=== PATIENT | female | born 1990 | race Caucasian/White ===

== ENCOUNTER 2021-05-20 17:48 | Inpatient (IN) ==
[2021-05-20] MEDS ORDERED: Buffered Lidocaine 1% SYRIN 1 ml INTRADERM ONE (18:31)
[2021-05-20] MEDS ORDERED: Dinoprostone 10 MG VAG.SUPP VAGINAL ONE (18:31)
[2021-05-20] MEDS ORDERED: Lactated Ringers 1000 ml BAG 1,000 ML IV ONE (18:31)
[2021-05-20] MEDS ORDERED: Lactated Ringers 1000 ml BAG 1,000 ML IV SCH (19:00)
[2021-05-20 20:48] LABS: Urine Benzodiazepine Screen None Detected (None Detect); Urine Cannabinoids Screen None Detected (None Detect); Urine Opiates Screen None Detected (None Detect)
[2021-05-21] MEDS ORDERED: Nalbuphine 10 MG/ML 1 ML VIAL IM ONE (03:48)
[2021-05-21] MEDS ORDERED: Calcium Carb (TUMS) 500 mg CHEW TAB PO PRN (03:49)
[2021-05-21] MEDS ORDERED: Promethazine INJ(RESTRICTED) 25 MG/ML 1 ml VIAL IM ONE (03:49)
[2021-05-21] MEDS ORDERED: Nalbuphine 10 MG/ML 1 ML VIAL ONE (04:03)
[2021-05-21] MEDS ORDERED: Promethazine INJ(RESTRICTED) 25 MG/ML 1 ml VIAL ONE (04:03)
[2021-05-21] MEDS ORDERED: Oxytocin in LR 20 UNITS/1,000 ML BAG IVPB SCH (11:00)
[2021-05-21 11:21] LABS: ABS Basophils 0.1 10^3/ul (0-0.2); ABS Eosinophils 0.1 10^3/ul (0-0.6); ABS Lymphocytes 1.5 10^3/ul (1.0-4.8); ABS Monocytes 0.5 10^3/ul (0-0.8); ABS Neutrophils 8.7 10^3/ul (1.5-7.7); Eosinophil % 0.6 %; Hematocrit 35 % (35-47); Hemoglobin 11.7 g/dL (12.0-16.0); Lymphocyte % 13.4 %; Mean Corpuscular HGB Conc 33 g/dL (31-36); Mean Corpuscular Hemoglobin 28 pg (27-31); Mean Corpuscular Volume 84 fL (80-97); Mean Platelet Volume 9.2 fL (7.4-10.4); Platelet Count 188 10^3/uL (150-450); Red Blood Count 4.18 10^6 /uL (3.70-4.87); Red Cell Distribution Width 17 % (10-15); White Blood Count 10.9 10^3/uL (3.5-10.8)
[2021-05-21 12:58] LABS: Urine Appearance Clear; Urine Bilirubin Negative (Negative); Urine Blood 2+ (Negative); Urine Color Yellow; Urine Glucose Negative (Negative); Urine Ketones Trace (Negative); Urine Nitrite Negative (Negative); Urine Protein Negative (Negative); Urine Specific Gravity 1.011 (1.002-1.030); Urine Urobilinogen Negative (Negative)
[2021-05-21 13:04] LABS: Urine Amorphous Crystals Present (Absent); Urine Bacteria 1+ (Absent); Urine Red Blood Cell 1+(3-5/hpf) (Absent); Urine Squamous Epithelial Cell Present (Absent); Urine White Blood Cell Trace(0-5/hpf) (Absent)
[2021-05-21 13:08] LABS: Albumin/Globulin Ratio 0.9 (1-3); Calcium 8.7 mg/dL (8.6-10.3); Globulin 3.2 g/dL (2-4); Potassium 3.8 mmol/L (3.5-5.0); Total Bilirubin 0.2 mg/dL (0.2-1.0); Total Protein 6.2 g/dL (6.4-8.9); Uric Acid 4.2 mg/dL (2.3-6.6)
[2021-05-21] MEDS ORDERED: Promethazine INJ(RESTRICTED) 25 MG/ML 1 ml VIAL IV PRN (21:22)
[2021-05-21] MEDS ORDERED: Nalbuphine 10 MG/ML 1 ML VIAL IV ONE (21:23)
[2021-05-22] MEDS ORDERED: OBEPIDURAL 250 ML EPIDURAL ONE (03:52)
[2021-05-22] MEDS ORDERED: Lactated Ringers 1000 ml BAG 1,000 ML IV ONE (05:07)
[2021-05-22] MEDS ORDERED: EPHEDrine (Pressors) 50 MG/ML VIAL IV PUSH PRN ×2 (05:07)
[2021-05-22] MEDS ORDERED: Sodium Citrate/Citric Acid LIQ 15 ML UDC PO PRN (05:07)
[2021-05-22] MEDS ORDERED: Phenylephrine 40 mcg/mL 10mL (400mcg) SYRINGE IV PUSH PRN ×2 (05:07)
[2021-05-22] MEDS ORDERED: Lactated Ringers 1000 ml BAG 500 ML IV PRN (05:07)
[2021-05-22] MEDS ORDERED: OBEPIDURAL 250 ML EPIDURAL SCH (06:00)
[2021-05-22] MEDS ORDERED: Lactated Ringers 1000 ml BAG 1,000 ML IV SCH ×3 (06:00→16:00)
[2021-05-22 06:12] LABS: Urine Appearance Clear; Urine Bilirubin Negative (Negative); Urine Blood 2+ (Negative); Urine Color Straw; Urine Glucose 1+(50 mg/dL) (Negative); Urine Ketones 1+ (Negative); Urine Nitrite Negative (Negative); Urine Protein Negative (Negative); Urine Specific Gravity 1.006 (1.002-1.030); Urine Urobilinogen Negative (Negative)
[2021-05-22 06:18] LABS: Urine Bacteria 1+ (Absent); Urine Red Blood Cell 2+(6-10/hpf) (Absent); Urine Squamous Epithelial Cell Present (Absent); Urine White Blood Cell Trace(0-5/hpf) (Absent)
[2021-05-22] MEDS ORDERED: diPHENhydraMINE IV 50 MG/ML 1 ml VIAL (BENADRYL) IV PRN (12:37)
[2021-05-22] MEDS ORDERED: Witch Hazel PAD JAR TOPICAL PRN (15:26)
[2021-05-22] MEDS ORDERED: RHO D Immune Globulin (HUMAN) 300 MCG = 1,500 I.U. INJ IM PRN (15:26)
[2021-05-22] MEDS ORDERED: Dibucaine 1% OINT 28.35 GM TUBE PR PRN (15:26)
[2021-05-22] MEDS ORDERED: Oxytocin in LR 20 UNITS/1,000 ML BAG IVPB SCH (16:00)
[2021-05-22] MEDS ORDERED: Lidocaine 1% VIAL 10 MG/ML VIAL ONE (18:44)
[2021-05-23 07:08] LABS: ABS Eosinophils 0.1 10^3/ul (0-0.6); ABS Lymphocytes 2.2 10^3/ul (1.0-4.8); ABS Monocytes 0.7 10^3/ul (0-0.8); ABS Neutrophils 11.1 10^3/ul (1.5-7.7); Eosinophil % 0.7 %; Hematocrit 27 % (35-47); Lymphocyte % 15.7 %; Mean Corpuscular HGB Conc 33 g/dL (31-36); Mean Corpuscular Hemoglobin 28 pg (27-31); Mean Corpuscular Volume 85 fL (80-97); Platelet Count 141 10^3/uL (150-450); Red Blood Count 3.17 10^6 /uL (3.70-4.87); Red Cell Distribution Width 17 % (10-15); White Blood Count 14.2 10^3/uL (3.5-10.8)
[2021-05-23 13:12] VITALS: BP 109/70
== END 2021-05-23 16:51 | disposition home or self-care (01) | DRG 560 ==
LOC: MCHOBOUT 17:48 → MCHOB 18:32
PROVIDERS: ADMIT Midwife; ATTEND Midwife

== ENCOUNTER 2023-12-20 16:46 | Inpatient (IN) ==
[2023-12-20] MEDS: Dinoprostone 10 MG VAG.SUPP VAGINAL ONE (18:54)
[2023-12-20 19:47] LABS: Urine Benzodiazepine Screen None Detected (None Detect); Urine Cannabinoids Screen None Detected (None Detect); Urine Opiates Screen None Detected (None Detect)
[2023-12-20] MEDS: NALTREXONE 3 MG PO SCH (21:41)
[2023-12-21] MEDS: Buffered Lidocaine 1% SYRIN 1 ml INTRADERM ONE (08:56)
[2023-12-21] MEDS: Oxytocin in LR 20,000 MILLI.UNIT/1,000 ML BAG IV SCH (09:02)
[2023-12-21] MEDS: Lactated Ringers 1000 ml BAG 1,000 ML IV SCH (09:03)
[2023-12-21 09:14] LABS: ABS Eosinophils 0.1 10^3/uL (0.0-0.5); ABS Lymphocytes 2.1 10^3/uL (1.0-4.8); ABS Monocytes 0.5 10^3/uL (0.0-0.9); ABS Neutrophils 6.5 10^3/uL (1.5-7.6); Eosinophil % 0.7 %; Hematocrit 34.2 % (35-45); Hemoglobin 11.1 g/dL (11.5-14.3); Lymphocyte % 22.6 %; Mean Corpuscular Hemoglobin 26.3 pg (27-33); Mean Corpuscular Hgb Conc 32.6 g/dL (31-36); Mean Corpuscular Volume 80.6 fL (80-97); Platelet Count 205 10^3/uL (150-450); Red Blood Count 4.24 10^6/uL (3.63-4.92); Red Cell Distribution Width 16.6 % (12-17); White Blood Count 9.2 10^3/uL (3.8-11.8)
[2023-12-21] MEDS: Penicillin G Potassium IV 5,000,000 UNITS in NS 0.9% 100 ml BAG 100 ML IVPB ONE (13:45)
[2023-12-21] MEDS: Penicillin G Potassium IV 3,000,000 UNITS in NS 0.9% 100 ml BAG 100 ML IVPB SCH ×2 (13:50→17:54)
[2023-12-21] MEDS: Lactated Ringers 1000 ml BAG 1,000 ML IV ONE (14:25)
[2023-12-21] MEDS: OBEPIDURAL (200 ML) 200 ML EPIDURAL ONE (22:39)
[2023-12-21] MEDS ORDERED: Phenylephrine 40 mcg/mL 10mL (400mcg) SYRINGE IV PUSH PRN ×2 (22:53)
[2023-12-21] MEDS ORDERED: Sodium Citrate/Citric Acid LIQ 15 ML UDC PO PRN (22:53)
[2023-12-21] MEDS: Lidocaine 1% VIAL 10 MG/ML 30 ML VIAL INJ PRN (23:11)
[2023-12-21] MEDS ORDERED: Lactated Ringers 1000 ml BAG 1,000 ML IV SCH (23:45)
[2023-12-22] MEDS: Witch Hazel PAD JAR TOPICAL PRN (00:07)
[2023-12-22] MEDS: Dibucaine 1% OINT 28.35 GM TUBE PR PRN (00:07)
[2023-12-22] MEDS: Oxytocin in LR 20,000 MILLI.UNIT/1,000 ML BAG IV SCH (00:19)
[2023-12-22] MEDS: fentaNYL 100 mcg/2 ml 50 MCG/ML VIAL ONE (06:19)
[2023-12-22 07:05] LABS: ABS Basophils 0.1 10^3/uL (0.0-0.1); ABS Lymphocytes 1.6 10^3/uL (1.0-4.8); ABS Neutrophils 13.7 10^3/uL (1.5-7.6); Eosinophil % 0.1 %; Hematocrit 28.4 % (35-45); Hemoglobin 9.3 g/dL (11.5-14.3); Lymphocyte % 9.6 %; Mean Corpuscular Hemoglobin 26.5 pg (27-33); Mean Corpuscular Hgb Conc 32.9 g/dL (31-36); Mean Corpuscular Volume 80.6 fL (80-97); Mean Platelet Volume 9.1 fL (7.5-11.2); Platelet Count 177 10^3/uL (150-450); Red Blood Count 3.52 10^6/uL (3.63-4.92); Red Cell Distribution Width 16.6 % (12-17); White Blood Count 16.3 10^3/uL (3.8-11.8)
[2023-12-22] MEDS: Lidocaine 1.5% EPI 1:200,000 30 ML SDV ONE (07:46)
[2023-12-22] MEDS: Lactated Ringers 1000 ml BAG 1,000 ML IV SCH (07:46)
[2023-12-22] MEDS: Lactated Ringers 1000 ml BAG 1,000 ML IV ONE (07:46)
[2023-12-22] MEDS: OBEPIDURAL (200 ML) 200 ML EPIDURAL SCH (07:47)
[2023-12-22] MEDS: RHO D Immune Globulin (HUMAN) 300 MCG = 1,500 I.U. INJ IM PRN (13:48)
[2023-12-23 09:26] VITALS: BP 122/62
== END 2023-12-23 17:15 | disposition home or self-care (01) | DRG 560 ==
LOC: MCHOBOUT 16:46 → MCHOB 18:11
PROVIDERS: ADMIT Midwife; ATTEND Midwife